=== PATIENT | male | born 1980 | race Caucasian/White ===

== ENCOUNTER 2025-05-12 14:28 | Emergency (ER) | payer BC, SELFPAY ==
--- NOTE | ~2025-05-12 | CT_ITS ---
EXAMINATION: CT HEAD WITHOUT CONTRAST CLINICAL INFORMATION: right sided facial droop COMPARISON: None available. TECHNIQUE: Contiguous axial imaging was performed from the skull base to vertex without intravenous administration of contrast. This CT examination was performed using dose optimization techniques as appropriate, variously including the following: *Automated exposure control *Adjustment of mA and/or kV according to patient size (this includes techniques or standardized protocols for targeted exams where dose is matched to indication/reason for exam; i.e. extremities or head) *Use of iterative reconstruction technique FINDINGS: Brain parenchyma: Artifacts limit evaluation of the lower part of the scanned brain. No shift of midline structures. No evidence of mass effect, obvious parenchymal hemorrhage or obvious evidence of acute territorial infarct. Ventricular/extra-axial spaces: No hydrocephalus. No clear evidence of extra-axial fluid collection. Extracranial structures: Mild mucosal thickening of the paranasal sinuses. Mastoid air cells are clear. No depressed skull fracture. CT/CT head/brain wo IV con IMPRESSION: Within the limitations described above, no evidence of acute intracranial findings. If clinical concern for acute infarct persists, consider brain MRI without intravenous contrast. Electronically signed by: Fidelia Bhatia MD 05/12/2025 04:37 PM EDT
[2025-05-12 14:54] VITALS: BP 173/83; PULSE 102; RESP 18; TEMP 36.7; O2SAT 98; BMI 24.5
--- NOTE | 2025-05-12 14:55 | ED_ITS ---
HPI - General Adult General Chief complaint: Neuro Symptoms/Deficit Stated complaint: Facial drooping Time Seen by Provider: 05/12/25 15:50 Source: patient, family, RN notes reviewed and old records reviewed Mode of arrival: ambulatory Limitations: no limitations History of Present Illness ED Provider: Patricio HPI narrative: Patient is a 44-year-old male referred to the ED from urgent care a few days ago after being seen there for right sided facial droop. 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 Denies fevers, neck pain or stiffness, headaches, photophobia, joint pain or body aches. States was not started on any medications after urgent care visit. MD complaint: facial droop Onset (ago): day(s) Related Data Previous Rx's ?Medication ?Instructions ?Recorded doxycycline hyclate 100 mg capsule 100 mg PO BID 21 da ys #42 caps 05/12/25 prednisone 20 mg tablet 60 mg (3 x 20 mg) PO DAILY 7 days 05/12/25 #21 tabs valacyclovir 1 gram tablet 1,000 mg PO TID 7 days #21 tabs 05/12/25 Allergies Allergy/AdvReac Type Severity Reaction Status Date / Time No Known Allergies Allergy Verified 05/12/25 15:00 Review of Systems 2 Review of Systems: As per HPI Yes all other systems are reviewed and are negative Constitutional: Constitutional: Reports as per HPI [facility] Social History Social History Advance Directives: No Advance Directives Information Provided: Yes Do you have a plan to hurt others: No Plan Physical Exam ED Vital Signs: Vital Signs - 24 hr 05/12/25 14:54 Temperature 98.0 F Pulse Rate 102 H Respiratory Rate 18 Blood Pressure 173/83 H Pulse Oximetry 98 Oxygen Delivery Method Room Air BMI result Body Mass Index 24.5 Vital signs have been reviewed and appear to be correct. Blood pressure elevated. Heart rate normal. Respiratory rate normal. Temperature normal. Oxygen saturation normal. Const General: cooperative, healthy appearing and no acute distress Orientation/consciousness: oriented to person, oriented to place, oriented to time and patient oriented x3 Limitations: no limitations HENMT Head: Yes normocephalic and Yes atraumatic Ears: external ears normal General nose exam: Normal external nose present Face and sinus: Yes other (right facial droop involving forehead) Mouth: oropharynx normal and moist mucous membranes Throat: Yes uvula midline Eyes Pupils: Equal, round and reactive pupils present Neck Neck: Yes normal visual inspection and Yes supple Resp Effort & Inspection: normal respiratory effort and able to speak in complete sentences Auscultation: clear to auscultation bilaterally Cardio Rate: regular rate Rhythm: regular rhythm Heart sounds: S1 normal heart sound present and S2 normal heart sound present GI Palpation (GI): Soft to palpation and nontender Auscultation: normoactive bowel sounds General: Yes no CVA tenderness Back/Spine/Pelvis Back: no CVA tenderness Skin General skin exam: elasticity normal and turgor normal Neuro General: oriented to person, oriented to place, oriented to time, patient oriented x3, moves all extremities and no focal motor deficits Cranial nerves: Yes Equal, round and reactive pupils present and Yes Individual cranial nerve findings present VII: abnormal (abnormal on right) Cognition (Neuro): normal cognition Extrem General: Yes full ROM, Yes no pedal edema and Yes no calf tenderness Psych Mental Status: mental status grossly normal Affect: normal affect Thought process: Normal thought process present Course Course Course Narrative: This is an RME: Additional HPI, ROS, PE not included below will be deferred to primary provider. RME assessment and note performed by: Ondina Barnes PA-C This is a [id number] who presents to the ER with complaint to the ER with complaint of facial droop. Had tick bite 6 weeks ago. Went to urgent care 2 days ago, advised to come to the ED. Was told to come to the ED due to ?cranial nerve testing to r/o meningitis. No neck pain. Pt with right sided facial droop, unable to raise eyebrows on the right Plan: Labs, further ER eval needed. Medical Decision Making Medical Decision Making MDM Narrative: Patient is a 44-year-old male referred to the ED from urgent care a few days ago after being seen there for right sided facial droop. On exam patient is awake, A+Ox3, VS WNL, afebrile, normal neurological exam without focal deficits, physical exam findings as above. Given reported symptoms and physical exam findings, initial differential includes but is not limited to facial nerve palsy, tick-borne illness/early disseminated Lyme disease. Unlikely ICH/CVA. Labs unremarkable, tick panel pending. CT notable for no evidence of ICH. My interpretation is in agreement with the radiologist's interpretation. Will treat patient empirically for Lyme with 21 day course of doxycycline, as well as 7 day course of prednisone and 7 day course of valacyclovir. Advised follow up with PCP. Return precautions discussed. Patient verbalized understanding of and agreement with plan. Differential Diagnosis Differential Diagnoses: The differential diagnosis associated with the presentation includes As per [facility] Admission/Observation Consideration of admission/observation: Escalation of care including admission/observation considered Patient would have been admitted to the hospital had their clinical presentation warranted hospital admission. Lab Data [facility] Lab Attestation statement: I reviewed the patient's lab results. as per [facility] 05/12/25 15:32 05/12/25 15:32 Labs: Lab Results 05/12/25 Range/Units 15:32 WBC 7.9 (4.8-10.8) X10*3/uL RBC 4.90 (4.60-5.80) X10*6/uL Hgb 14.8 (14.0-18.0) g/dl Hct 42.7 (42.0-52.0) % MCV 87.1 (80.0-98.0) fL MCH 30.2 (27.0-33.0) pg MCHC 34.7 (31.0-36.0) g/dl RDW 14.0 (11.0-16.0) % Plt Count 210 (160-400) X10*3/uL MPV 10.4 (9.4-12.4) fL Immature Gran % (Auto) 0.3 (0.0-0.4) % Neut % (Auto) 67.8 (45-73) % Lymph % (Auto) 17.7 L (20-40) % Kings % (Auto) 9.4 (2-11) % Eos % (Auto) 4.2 H (0-4) % Baso % (Auto) 0.6 (0-2) % Lymph # (Auto) 1.4 (1.2-4.9) X10*3/uL Kings # (Auto) 0.7 (0.1-1.2) X10*3/uL Eos # (Auto) 0.3 (0.0-0.4) X10*3/uL Baso # (Auto) 0.1 (0.0-0.2) X10*3/uL Abs Immat Gran (auto) 0.02 (0.00-0.03) X10*3/uL Absolute Neuts (auto) 5.4 (2.0-8.3) x10*3/uL Absolute Nucleated RBC 0.000 (0.0-0.012) X10*3/uL Nucleated RBC % (auto) 0.0 (0.0-0.2) /100WBC ESR 12 (0-15) MM/HR Sodium 139 (135-145) mmol/L Potassium 3.7 (3.3-5.1) mmol/L Chloride 105 (96-108) mmol/L Carbon Dioxide 27 (22-29) mmol/L Anion Gap 11 L (12-20) BUN 15 (9-16) mg/dL Creatinine 0.97 (0.5-1.4) mg/dL Estim Creat Clear Calc 107.7 Estimated GFR > 60 Random Glucose 99 (60-115) mg/dL Calcium 8.8 (8.4-10.2) mg/dL Total Bilirubin 0.8 (0.0-1.0) mg/dL Direct Bilirubin 0.3 (0.0-0.5) mg/dL AST 28 (5-37) U/L ALT 23 (0-40) U/L Alkaline Phosphatase 53 (39-117) U/L C-Reactive Protein 0.27 (< or = 0.50) mg/dL Total Protein 6.8 (6.5-8.0) g/dL Albumin 4.1 (3.5-5.0) g/dL Independent Interpretation I performed an independent interpretation of an: CT Scan Interpretation: CT head without evidence of ICH Radiology Impression Discussion of test interpretation with radiology: I have reviewed the radiologist's reading. Radiologist Impression: CT/CT head/brain wo IV con IMPRESSION: Within the limitations described above, no evidence of acute intracranial findings. If clinical concern for acute infarct persists, consider brain MRI without intravenous contrast. External Record Review External record reviewed: Inpatient record, Office record and Outpatient record Prescription Management I considered prescription management with: Antiviral, Antibiotic and Other Discharge Plan Discharge Clinical Impression: Facial nerve palsy Patient Disposition: Home, Self-Care Instructions: Doxycycline (By mouth), Prednisone (By mouth), Valacyclovir (By mouth), [place] Palsy (ED) Additional Instructions: You were evaluated in the emergency department today for a facial droop. Your symptoms are consistent with a facial nerve palsy (also called [place] Palsy) likely due to known tick bites. Your tick borne illness panel is pending and you will be contacted with any positive results. You are being treated empirically with an antibiotic called doxycycline which you will need to take for 3 weeks. Please note, this medication makes you extremely sensitive to sunlight and you should wear long sleeves and pants as well as had or high SPF sunscreen while outdoors when taking this medication. You are also being prescribed a course of steroids to decrease inflammation. You are also being treated with an antiviral medication called valacyclovir. Complete the full course of all medications as prescribed. As discussed, you should take your eye shut while sleeping to avoid any injuries or corneal abrasions. You will be contacted with any positive results of the tick-borne illness panel. Return to the emergency department if you develop fever, headaches, neck stiffness, photophobia (light sensitivity) or any other new or concerning symptoms. Follow up with your primary care provider within 1 week. Prescriptions: New doxycycline hyclate 100 mg capsule 100 mg PO BID 21 Days Qty: 42 0RF valacyclovir 1 gram tablet 1,000 mg PO TID 7 Days Qty: 21 0RF prednisone 20 mg tablet 60 mg PO DAILY 7 Days Qty: 21 0RF Print Language: Luxembourgish
[2025-05-12 15:36] LABS: MANUAL DIFF FLAG NO
[2025-05-12 15:38] LABS: Hematocrit 42.7 % (42.0-52.0); Hemoglobin 14.8 g/dl (14.0-18.0); Imm Gran Abs Auto 0.02 X10*3/uL (0.00-0.03); Imm Gran Pct Auto 0.3 % (0.0-0.4); Lymphocytes Absolute Auto 1.4 X10*3/uL (1.2-4.9); Mean Corpuscular HGB Conc 34.7 g/dl (31.0-36.0); Mean Corpuscular Hemoglobin 30.2 pg (27.0-33.0); Mean Corpuscular Volume 87.1 fL (80.0-98.0); NRBC Abs Auto 0.000 X10*3/uL (0.0-0.012); NRBC Pct Auto 0.0 /100WBC (0.0-0.2); Platelet Count 210 X10*3/uL (160-400); Red Blood Count 4.90 X10*6/uL (4.60-5.80); White Blood Count 7.9 X10*3/uL (4.8-10.8)
[2025-05-12 15:50] LABS: Alanine Aminotransferase 23 U/L (0-40); Albumin Level 4.1 g/dL (3.5-5.0); Alkaline Phosphatase 53 U/L (39-117); Anion Gap 11 (12-20); Aspartate Amino Transferase 28 U/L (5-37); Blood Urea Nitrogen 15 mg/dL (9-16); Calcium 8.8 mg/dL (8.4-10.2); Carbon Dioxide 27 mmol/L (22-29); Chloride 105 mmol/L (96-108); Creatinine Clr Calc Pharmacy 107.7; Estimated Glomerular Filt Rate > 60; Potassium 3.7 mmol/L (3.3-5.1); Sodium 139 mmol/L (135-145); Total Protein 6.8 g/dL (6.5-8.0)
[2025-05-12 17:19] VITALS: BP 173/83; PULSE 102; RESP 18; TEMP 36.7; O2SAT 98
[2025-05-13 16:09] LABS: Lyme Blot 9.80 index
[2025-05-21 11:59] LABS: 39KD (IgG) Band REACTIVE; 41KD (IgG) Band REACTIVE; Lyme IgG Blot Interp POSITIVE (NEGATIVE); Lyme IgM Blot Interp POSITIVE (NEGATIVE)
[2025-05-21 12:01] LABS: Lyme Abs Screen POSITIVE
[2025-05-27 16:59] LABS: A. Phagocytophilum Ab IgG <1:64 (<1:64); A. Phagocytophilum Ab IgM <1:20 (<1:20)
== END 2025-05-12 17:19 | disposition home or self-care (01) ==
PROVIDERS: Physician Assistant Medical; Emergency Provider Emergency Medicine; PCP Internal Medicine
DX: G51.0 Bell's palsy (principal); R21 Rash and other nonspecific skin eruption
CPT/HCPCS: 36415; 70450; 80048; 80076; 85025; 85652; 86140; 86617; 86618; 86666; 86753; 99282; 99284

== ENCOUNTER → 2025-05-12 15:11 | Outpatient (BNV) | payer BC, SELFPAY | PROVIDERS: Emergency Provider Emergency Medicine; PCP Internal Medicine; Visit Provider Radiology Body Imaging | DX: R29.818 Other symptoms and signs involving the nervous system (principal); R29.810 Facial weakness | CPT/HCPCS: 70450 ==